=== PATIENT | female | born 1975 | race Caucasian/White ===

== ENCOUNTER 2017-10-19 16:41 | Emergency (ER) | payer OTHER, BC ==
[~2017-10-19] VITALS: Ht 167.6 cm; Wt 119.0 kg
[~2017-10-19 16:41] MED LIST: BIOTIN1000 MICRO PO; CELEBREX200 MG PO; DAILY VALUE1 EACH PO; GUMMI BEAR MUL1 EACH PO; HYDROCODON-ACE1 EAC7 PO; NOHOMEMEDS; VITAMIN B-121000 MC1 SL
[2017-10-19 17:08] LABS: HEMATOCRIT 43.2 % (36.0-46.0); MCH 28.2 PG (29.0-34.0); MCHC 33.3 G/DL (30.0-36.0); MCV 84.7 FL (83-99); MEAN PLAT.VOLUME 11.3 uM^3 (9.5-12.4); PLATELET COUNT 343 K/uL (156-360); RBC DIS.WIDTH-CV 12.8 % (11.8-14.6); RBC DIS.WIDTH-SD 39.8 % (39-53); WHITE BLOOD COUNT 13.8 K/uL (4.1-10.2)
[2017-10-19 17:19] LABS: CHLORIDE 104 mEq/L (99-109); POTASSIUM 3.4 mEq/L (3.7-5.4); SODIUM 139 mEq/L (136-147)
[2017-10-19 17:21] LABS: GLUCOSE 98 mg/dL (70-99)
[2017-10-19 17:22] LABS: ANION GAP 12 MEQ/L (2-14)
[2017-10-19 17:25] LABS: GFR ESTIMATE (CALCULATED) > 59 mL/min/
[2017-10-19 17:26] LABS: UREA NITROGEN (BUN) 9 mg/dL (9-23)
[2017-10-19 18:23] VITALS: BP 122/81
== END 2017-10-19 18:24 | disposition home or self-care (01) ==
LOC: EME 16:41
PROVIDERS: Emergency Medicine
DX: S06.0X0A Concussion without loss of consciousness, initial encounter (principal); S20.219A Contusion of unspecified front wall of thorax, initial encounter; S00.03XA Contusion of scalp, initial encounter; M54.2 Cervicalgia; M25.511 Pain in right shoulder; V43.53XA Car driver injured in collision with pick-up truck in traffic accident, initial encounter; Y92.410 Unspecified street and highway as the place of occurrence of the external cause; Z98.84 Bariatric surgery status
CPT/HCPCS: 70450; 71020; 80048; 85027; 99281; 99284